=== PATIENT | female | born 1995 | race Asian ===

== ENCOUNTER → 2025-05-22 10:52 | Outpatient (CLI) | payer OTHER, SELFPAY ==
[2025-05-22 14:58] LABS: Urine N gonorrhoeae NOT DETECTED
[2025-05-22 15:01] LABS: Urine Chlamydia NOT DETECTED
== END ==
PROVIDERS: Visit Provider Obstetrics & Gynecology
DX: Z34.80 Encounter for supervision of other normal pregnancy, unspecified trimester (principal)
CPT/HCPCS: 87491; 87591

== ENCOUNTER → 2025-05-22 11:53 | Outpatient (CLI) | payer OTHER, SELFPAY ==
[2025-05-22 13:37] LABS: Add Manual Diff / Slide Review NO; Hematocrit 34.0 % (36-46); Hemoglobin 11.5 g/dL (12.0-16.0); Lymphocytes Absolute Auto 1300 /uL (1100-4500); Mean Corpuscular HGB Conc 33.9 % (30-36); Mean Corpuscular Hemoglobin 27.4 PG (26-34); Mean Corpuscular Volume 80.9 fL (80-100); Platelet Count 263 X10^3/uL (150-400)
[2025-05-22 13:43] LABS: Natera Collection Specimen Collected
[2025-05-23 15:14] LABS: Hepatitis B Surface Antigen NEGATIVE s/c (NEGATIVE)
[2025-05-23 15:29] LABS: HIV 1 & 2 Ab/Ag 4th Gen Combo NEGATIVE (NEGATIVE); Hep C Virus Ab w/Reflex Quant NEGATIVE s/c (NEGATIVE)
[2025-05-25 10:09] LABS: RPR QNT 1:2 titer (NonRea<1:1); RPR Quant + RPR Abs Non Reactive (Non Reactive)
== END ==
PROVIDERS: Referring Provider Obstetrics & Gynecology; Visit Provider Obstetrics & Gynecology
DX: Z34.82 Encounter for supervision of other normal pregnancy, second trimester (principal)
CPT/HCPCS: 36415; 80055; 86787; 86803; 86850; 86900; 86901; 87389; 87491; 87591

== ENCOUNTER → 2025-06-20 07:58 | Outpatient (CLI) | payer OTHER, SELFPAY ==
--- NOTE | 2025-06-20 07:59 | DI.US.S_ITS ---
PROCEDURE: US OB >= 14 WEEKS FETUS INDICATIONS: ANATOMY OUTSIDE/PRIOR DATING DATA: Last menstrual period (LMP): Unknown. LMP-based estimated date of delivery (LANCE): Not applicable. First dating scan (date and location): Not available. The calculations are made using the clinically provided LANCE of November 12, 2025. TECHNIQUE: Real-time scanning was performed of the fetus, with image documentation and biometric measurements. Endovaginal scanning: Not performed COMPARISON: None. FINDINGS: General: A single living intrauterine gestation is present. Presentation: Breech. Placenta: Placental position is posterior , without previa. Amniotic fluid index: 15.5 cm, normal range is 5-24 cm. Single deepest vertical pocket is 4.6 cm. heart rate: 152 beats per minute. Maternal cervical canal: 5.0 cm long. Normal lower limit is 2.5 cm. biometrics: Biparietal diameter: 4.3 cm, 19 weeks and 0 days Head circumference: 16.2 cm, 19 weeks and 0 days Abdominal circumference: 14.7 cm, 20 weeks and 0 days Femur length: 2.8 cm, 18 weeks and 5 days Clinically estimated gestational age: 19 weeks and 2 days Composite gestational age from present scan: 19 weeks and 1 day Estimated weight and percentile: 286 g, 47th percentile for gestational age Anatomic survey: Neuro: Ventricles are non-dilated at less than 10 mm. Cisterna magna is normal at 3-11 mm. Cerebellum is normal in size and morphology. Nuchal skin fold: Normal at less than 6 mm between 14-21 weeks gestational age. Face: There is a small thin hypoechoic focus within the upper lip which may represent artifact versus possible cleft lip. Spine: No evidence for spina bifida. Heart: 4-chambered heart is present, with normal ventricular outflow tracts. Diaphragm: Diaphragm is intact. Stomach: Left-sided stomach is present. Kidneys: Right kidney not well visualized secondary to positioning. No hydronephrosis. Normal is less than 5 mm in 2nd trimester, less than 7 mm in 3rd trimester. Cord: 3-vessel cord has orthotopic insertion. Bladder: Normal in size. Extremities: All 4 extremities identified. IMPRESSION: Single living intrauterine gestation with estimated sonographic gestational age of approximately 19 weeks and 1 day which measures concordantly with estimated gestational age by last menstrual period of approximately 19 weeks and 2 days. Estimated weight of approximately 286 g which correlates with the 47th percentile for gestational age. Small linear hypoechoic in the upper lip. This may be artifactual versus possible cleft lip. Follow-up imaging recommended to confirm. Right Kidney not well visualized secondary to positioning. Follow-up imaging recommended. We strive to produce accurate, complete, and clear reports of imaging services. To assist us in improving patient care, this report was composed using standard report templates and voice recognition software. Therefore, it may contain abnormal punctuation, insertions and/or omissions. Occasional wrong-word or sound-alike substitutions may occur. Though we review the report and make efforts to correct it, we do recommend that the report be read carefully in proper context to recognize any text inaccuracies. Dictated by: Boyd Foster M.D. on 06/20/2025 at 18:09 Approved by: Boyd Foster M.D. on 06/20/2025 at 18:16
== END ==
LOC: US 07:59
PROVIDERS: Referring Provider Emergency Medicine; Visit Provider Emergency Medicine
DX: Z34.82 Encounter for supervision of other normal pregnancy, second trimester (principal); Z3A.19 19 weeks gestation of pregnancy
CPT/HCPCS: 76811

== ENCOUNTER → 2025-07-18 08:25 | Outpatient (CLI) | payer OTHER, SELFPAY ==
--- NOTE | 2025-07-18 08:26 | DI.US.S_ITS ---
PROCEDURE: US OB FOLLOW UP INDICATIONS: re-imaging of possible cleft lip OUTSIDE/PRIOR DATING DATA: Working LANCE 11/12/2025 TECHNIQUE: Real-time scanning was performed of the fetus, with image documentation and biometric measurements. Endovaginal scanning: Not obtained COMPARISON: [facility], , US OB >= 14 WEEKS FETUS, 06/20/2025, 8:14. FINDINGS: General: A single living intrauterine gestation is present. Presentation: Vertex. Placenta: Placental position is posterior , without previa. Amniotic fluid index: 17.5 cm, normal range is 5-24 cm. Single deepest vertical pocket is 6.2 cm. heart rate: 126 beats per minute. Maternal cervical canal: 5.3 cm long. Normal lower limit is 2.5 cm. Composite gestational age from present scan: 23 weeks 2 days Other: Nose, lips, profile and right kidney are within normal limits. IMPRESSION: Single live intrauterine with gestational age of 23 weeks 2 days. Nose, lips, profile and right kidney are within normal limits. We strive to produce accurate, complete, and clear reports of imaging services. To assist us in improving patient care, this report was composed using standard report templates and voice recognition software. Therefore, it may contain abnormal punctuation, insertions and/or omissions. Occasional wrong-word or sound-alike substitutions may occur. Though we review the report and make efforts to correct it, we do recommend that the report be read carefully in proper context to recognize any text inaccuracies. Dictated by: Isatu Mullins M.D. on 07/18/2025 at 12:17 Approved by: Isatu Mullins M.D. on 07/18/2025 at 12:19
== END ==
LOC: US 08:26
PROVIDERS: Referring Provider Obstetrics & Gynecology; Visit Provider Obstetrics & Gynecology
DX: Z36.2 Encounter for other antenatal screening follow-up (principal); Z3A.23 23 weeks gestation of pregnancy
CPT/HCPCS: 76816; 82105

== ENCOUNTER → 2025-07-18 12:00 | Outpatient (CLI) | payer OTHER, SELFPAY ==
[2025-07-21 16:36] LABS: Gest Age on Col Date 23.3 weeks (.); OSBR Risk 1IN 10000 (.)
== END ==
PROVIDERS: Referring Provider Obstetrics & Gynecology; Visit Provider Obstetrics & Gynecology
DX: Z34.82 Encounter for supervision of other normal pregnancy, second trimester (principal); Z3A.23 23 weeks gestation of pregnancy
CPT/HCPCS: 82105

== ENCOUNTER → 2025-08-15 12:09 | Outpatient (CLI) | payer OTHER, SELFPAY ==
[2025-08-15 13:54] LABS: Add Manual Diff / Slide Review NO; Hematocrit 33.0 % (36-46); Hemoglobin 11.1 g/dL (12.0-16.0); Lymphocytes Absolute Auto 1000 /uL (1100-4500); Mean Corpuscular HGB Conc 33.5 % (30-36); Mean Corpuscular Hemoglobin 27.4 PG (26-34); Mean Corpuscular Volume 81.7 fL (80-100); Platelet Count 241 X10^3/uL (150-400)
[2025-08-15 14:14] LABS: GTT (PREG) 1 Hour PP 50gm Dose 126 mg/dL (76-139)
== END ==
PROVIDERS: Obstetrics & Gynecology; Referring Provider Emergency Medicine; Visit Provider Emergency Medicine
DX: Z34.80 Encounter for supervision of other normal pregnancy, unspecified trimester (principal); Z3A.26 26 weeks gestation of pregnancy
CPT/HCPCS: 82950; 85025